=== PATIENT | male | born 1970 ===

== ENCOUNTER 2018-02-18 17:30 | Emergency (ER) | payer MEDICAID ==
[2018-02-18] MEDS ORDERED: Sodium Chloride 0.9% 1,000 ML IV ONE (18:07)
--- NOTE | 2018-02-18 18:08 | C.PDOC ---
History Of Present Illness 47 year old male presents to the ED for evaluation of abdominal pain which began yesterday. Patient also reports vomiting and diarrhea. He denies fever, chills, and has no other complaints at this time. Time Seen by Provider: 02/18/18 18:05 Chief Complaint (Nursing): Abdominal Pain History Per: Patient History/Exam Limitations: no limitations Onset/Duration Of Symptoms: Hrs Current Symptoms Are (Timing): Still Present Location Of Pain/Discomfort: Diffuse Radiation Of Pain To:: None Quality Of Discomfort: "Pain" Associated Symptoms: Vomiting, Diarrhea. denies: Fever, Chills Last Bowel Movement: Today Additional History Per: Patient Past Medical History Reviewed: Historical Data, Nursing Documentation, Vital Signs Vital Signs: Last Vital Signs Temp 98.6 F 02/18/18 22:10 Pulse 81 02/18/18 22:10 Resp 18 02/18/18 22:10 BP 121/66 02/18/18 22:10 Pulse Ox 99 02/18/18 22:10 - Medical History PMH: No Chronic Diseases Surgical History: No Surg Hx Family History: States: Unknown Family Hx - Social History Hx Alcohol Use: No Hx Substance Use: No - Immunization History Hx Tetanus Toxoid Vaccination: No Hx Influenza Vaccination: No Hx Pneumococcal Vaccination: No Review Of Systems Constitutional: Negative for: Fever, Chills Gastrointestinal: Positive for: Vomiting, Abdominal Pain, Diarrhea Physical Exam - Physical Exam Appears: Non-toxic, No Acute Distress Skin: Normal Color, Warm, Dry Head: Atraumatic, Normacephalic Eye(s): bilateral: Normal Inspection Oral Mucosa: Moist Neck: Supple Chest: Symmetrical, No Deformity, No Tenderness Cardiovascular: Rhythm Regular, No Murmur Respiratory: Normal Breath Sounds, No Rales, No Rhonchi, No Wheezing Gastrointestinal/Abdominal: Soft, Tenderness (mild, left-sided), No Guarding, No Rebound Extremity: Normal ROM, Capillary Refill (less than 2 seconds ) Neurological/Psych: Oriented x3, Normal Speech, Normal Cognition ED Course And Treatment - Laboratory Results Result Diagrams: 02/18/18 18:37 02/18/18 18:37 ECG: Interpreted By Me, Viewed By Me ECG Rhythm: Sinus Rhythm Interpretation Of ECG: Normal Sinus Rhythm at rate 73bpm. No ST/T wave changes. Rate From EC O2 Sat by Pulse Oximetry: 96 (on RA) Pulse Ox Interpretation: Normal Medical Decision Making Medical Decision Making: r/o gastiris pancreatitis colitis obstruction - labs pending Progress: Bloodwork, UA, and EKG ordered and reviewed. Protonix IVP, Zofran IVP and IV Fluids administered. ct shows sbo- pt offered admission, refuses. explained extensively risk. states will return with worsening. This patient is choosing to leave against medical advice. I have personally explained to the patient that choosing to do so may result in permanent bodily harm or . I have discussed at great length that without further evaluation and monitoring there may be unforeseen circumstances and/or deterioration causing permanent bodily harm or as a result of their choice. The patient is alert, oriented, and shows the mental capacity to make clear decisions regarding the patients health care at this time. The patient continues to wish to leave against medical advice. In light of the patients decision to leave AMA, follow-up has been arranged and the patient is aware of the importance of following up as instructed. The patient has been advised that they should return to the ED immediately if they change their mind at any time, or if their condition begins to change or worsen in any way. Disposition - Disposition Referrals: [facility] [Outside] [facility] [Outside] [facility] [Outside] Tanisha Montgomery MD [Staff Provider] - Melecio Nielson MD [Staff Provider] - Disposition: HOME/ ROUTINE Disposition Time: 00:21 Condition: UNKNOWN Additional Instructions: please follow up with your doctor. return to er with worsening symptoms or concenrs. please see specialist. Prescriptions: Ciprofloxacin [Cipro] 500 mg PO BID #14 tab Metronidazole [Flagyl] 500 mg PO TID #21 tablet Instructions: Small Bowel Obstruction, Bacterial Gastroenteritis, Child (DC), Leaving Against Medical Advice Forms: [facility] (Tajik) - Clinical Impression Clinical Impression: Bowel obstruction, Gastroenteritis - Scribe Statement The provider has reviewed the documentation as recorded by the Scribe (Nilsa Gonzalez) Provider Attestation: All medical record entries made by the Scribe were at my direction and personally dictated by me. I have reviewed the chart and agree that the record accurately reflects my personal performance of the history, physical exam, medical decision making, and the department course for this patient. I have also personally directed, reviewed, and agree with the discharge instructions and disposition.
[2018-02-18] MEDS ORDERED: Sodium Chloride 0.9% 1,000 ML ONE (18:21)
[2018-02-18 18:40] LABS: BASO # 0.1 K/uL (0.0-0.2); BASO % 0.9 % (0.0-2.0); EOS # 0.2 K/uL (0.0-0.7); EOS % 1.4 % (0.0-4.0); HEMOGLOBIN 18.2 g/dL (12.0-18.0); LYMPH # 2.2 K/uL (1.0-4.3); LYMPH % 19.7 % (20.0-40.0); MEAN CELL VOLUME 94.3 fL (80.0-94.0); MEAN CORPUSCULAR HEMOGLOBIN 32.4 pg (27.0-31.0); MEAN CORPUSCULAR HGB CONC 34.4 g/dL (33.0-37.0); MEAN PLATELET VOLUME 7.7 fL (7.2-11.7); MONO % 8.9 % (0.0-10.0); NEUT # 7.8 K/uL (1.8-7.0); NEUT % 69.1 % (50.0-75.0); NRBC % 0.1 % (0.0-2.0); RBC 5.61 Mil/uL (4.40-5.90); RED CELL DISTRIBUTION WIDTH 14.2 % (11.5-14.5); WHITE BLOOD COUNT 11.3 K/uL (4.8-10.8)
[2018-02-18 18:46] LABS: SQUAMOUS EPITHIAL 1 /hpf (0-5); URINE BILIRUBIN NEGATIVE (NEGATIVE); URINE BLOOD 2+ (NEGATIVE); URINE CLARITY Hazy (Clear); URINE COLOR Amber (YELLOW); URINE GLUCOSE (UA) NORMAL (Normal); URINE LEUKOCYTE ESTERASE NEG Leu/uL (Negative); URINE PROTEIN 2+ mg/dL (NEGATIVE)
[2018-02-18 18:50] LABS: INR 1.1; PROTHROMBIN TIME 12.2 SECONDS (9.7-12.2)
[2018-02-18 18:52] LABS: ALB/GLOB RATIO 1.1 (1.0-2.1); ALBUMIN 4.7 g/dL (3.5-5.0); ALT/SGPT 36 U/L (21-72); AST/SGOT 38 U/L (17-59); BLOOD UREA NITROGEN 16 mg/dL (9-20); CALCIUM 9.4 mg/dl (8.6-10.4); GFR AFRICAN-AMERICAN > 60; GFR NON-AFRICAN AMERICAN > 60; LIPASE 57 U/L (23-300)
[2018-02-18] MEDS ORDERED: Iohexol 300 100 ML IJ ONE (19:21)
[2018-02-18 21:10] VITALS: RESP 18
--- NOTE | 2018-02-18 21:43 | CT ---
EXAM: CT Abdomen and Pelvis With Intravenous Contrast EXAM DATE/TIME: 02/18/2018 7:12 PM CLINICAL HISTORY: 47 years old, male; Pain; Abdominal pain; Flank; Left lower quadrant (llq); Additional info: Left sided abd pain TECHNIQUE: Axial computed tomography images of the abdomen and pelvis with intravenous contrast. All CT scans at this facility use one or more dose reduction techniques, viz.: automated exposure control; ma/kV adjustment per patient size (including targeted exams where dose is matched to indication; i.e. head); or iterative reconstruction technique. Coronal and sagittal reformatted images were created and reviewed. CONTRAST: 100 mL of OMNIPAQUE 300 administered intravenously. COMPARISON: There are no prior studies for comparison. FINDINGS: Artifact: There is patient motion artifact. There is streak artifact Lower thorax: Heart size is normal. There is dependent atelectasis bilaterally. ABDOMEN: Liver: There is fatty infiltration of the liver. Gallbladder and bile ducts: unremarkable Pancreas: unremarkable Spleen: unremarkable Adrenals: unremarkable Kidneys and ureters: There is a left renal cyst.Kidneys and ureters are otherwise unremarkable. Stomach and bowel: Stomach is partially distended. There is asymmetric gastric wall thickening. There is mild prominence of the antral and duodenal viera. There is mild descending duodenal fold and wall thickening. Rotation is normal. Proximal and mid small bowel is dilated with air-fluid levels. There is wall in thickening. There is caliber change in the right mid to lower abdomen. Distal small bowel is partially distended with fluid. There is mild distal and terminal ileal wall thickening and fatty infiltration.Appendix is unremarkable. Colon is partially distended with fluid. Appendix: See stomach and bowel PELVIS: Bladder: The bladder is incompletely distended. There is mild bladder wall prominence. Reproductive: Seminal vesicles and prostate are unremarkable. ABDOMEN and PELVIS: Intraperitoneal space: There is no free air or free fluid. Bones/joints: There are degenerative changes in the osseus structures. There degenerative changes of the sacroiliac joints. Soft tissues: There is bilateral gynecomastia. Vasculature: Vascular structures are unremarkable. Lymph nodes: There is no pathologic adenopathy. IMPRESSION: Partial versus early mid small bowel obstruction most likely due to thickened abnormal ileal loops in the right lower quadrant, asymmetric gastric and small bowel wall thickening with fluid throughout the intestinal tract suggestive gastroenteritis or inflammatory bowel disease; no acute solid visceral abnormality, no renal or ureteral stones or hydronephrosis Additional nonemergent findings as described above.
[2018-02-18] MEDS ORDERED: Piperacillin/Tazobact 3.375 gm 100 ML IVPB STA (21:45)
[2018-02-18] MEDS ORDERED: Piperacillin/Tazobact 3.375 gm 100 ML IVPB ONE (22:02)
[2018-02-18 22:10] VITALS: BP 121/66; PULSE 81; TEMP 98.6
[2018-02-19 00:24] VITALS: O2SAT 96
--- NOTE | 2018-02-19 10:30 | CARD ---
APPROVED REPORT EKG Measurement Heart [id number] <Conclusion> Normal sinus rhythm,rsr in v1.
== END 2018-02-18 22:37 | disposition home or self-care (01) ==
LOC: C.ER 17:30
DX: K56.609 Unspecified intestinal obstruction, unspecified as to partial versus complete obstruction (principal); K52.9 Noninfective gastroenteritis and colitis, unspecified
CPT/HCPCS: 74177; 80053; 81001; 83690; 84484; 85025; 85610; 85730; 93005; 96361; 96365; 96375; 99285; C9113; J2405; J2543; J7040; Q9967

== ENCOUNTER 2018-10-10 14:32 | Emergency (ER) | payer MEDICAID ==
[2018-10-10 15:02] VITALS: BP 156/92; PULSE 78; RESP 20; TEMP 98.9; O2SAT 99
[2018-10-10] MEDS ORDERED: Tobramycin 0.3% OPH OINT OD STA (15:21)
[2018-10-10] MEDS ORDERED: PROPARACAINE/FLUORESCEIN SOD 100 DROP/5 ML BOTTLE OD STA (15:22)
--- NOTE | 2018-10-10 15:22 | C.PDOC ---
History Of Present Illness 48 years old male presents to ED for complaints of Right eye pain that began last night s/p getting poked by a tree branch. Patient also reports positive tearing and minimal eyelid swelling. Time Seen by Provider: 10/10/18 15:08 Chief Complaint (Nursing): Eye Problem History Per: Patient History/Exam Limitations: no limitations Onset/Duration Of Symptoms: Hrs Current Symptoms Are (Timing): Still Present Injury To Eye?: Yes Wears Contact Lens?: No Associated Symptoms: Pain, Swelling Recent travel outside of the [place]: No Past Medical History Reviewed: Historical Data, Nursing Documentation, Vital Signs Vital Signs: Last Vital Signs Temp 98.9 F 10/10/18 14:57 Pulse 78 10/10/18 14:57 Resp 20 10/10/18 14:57 BP 156/92 H 10/10/18 14:57 Pulse Ox 99 10/10/18 14:57 - Medical History PMH: No Chronic Diseases Surgical History: No Surg Hx Family History: States: Unknown Family Hx - Social History Hx Alcohol Use: No Hx Substance Use: No - Immunization History Hx Tetanus Toxoid Vaccination: No Hx Influenza Vaccination: No Hx Pneumococcal Vaccination: No Review Of Systems Constitutional: Negative for: Fever, Chills Eyes: Positive for: Pain (Right eye pain), Other (Eyelid swelling and positive tearing ) Gastrointestinal: Negative for: Nausea, Vomiting Skin: Negative for: Rash Neurological: Negative for: Weakness, Numbness Physical Exam - Physical Exam Appears: Non-toxic, No Acute Distress Skin: Warm, Dry, No Rash Head: Atraumatic, Normacephalic Eye(s): right: Other (Corneal abrasion of eye and minimal eyelid swelling without erythema.), left: Normal Inspection, PERRL, EOMI Ear(s): Bilateral: Normal Nose: Normal Oral Mucosa: Moist Neck: Normal ROM, Supple Chest: Symmetrical, No Tenderness Cardiovascular: Rhythm Regular Respiratory: Normal Breath Sounds, No Rales, No Rhonchi, No Wheezing Extremity: Normal ROM Extremity: Bilateral: Atraumatic, Normal Color And Temperature, Normal ROM Pulses: Left Radial: Normal, Right Radial: Normal Neurological/Psych: Oriented x3, Normal Speech Gait: Steady ED Course And Treatment O2 Sat by Pulse Oximetry: 99 (RA) Pulse Ox Interpretation: Normal Medical Decision Making Medical Decision Making: Left Eye: 20/20 Right eye: 20/40 Plan: * Evaluated patient with mahoney lamp. * Floresceins positive * Advised for Corneal abrasion follow up with Lizzette Gutierrez * Tobramycin Applied. Disposition Counseled Patient/Family Regarding: Studies Performed, Diagnosis, Need For Followup, Rx Given - Disposition Referrals: Dago Erickson MD [Staff Provider] - Disposition: HOME/ ROUTINE Disposition Time: 16:31 Condition: STABLE Additional Instructions: FOLLOW UP WITH DR. ERICKSON TOMORROW AM WITHOUT FAIL. IF SYMPTOMS GET WORSE OR ANY NEW CONCERNING SYMPTOMS DEVELOP RETURN TO ED. Prescriptions: Tobramycin [Tobrex] 1 oin OD BID #3.5 g Instructions: Corneal Abrasion (DC) Forms: [facility] (Korean), General Discharge Instructions - Clinical Impression Clinical Impression: Corneal abrasion - PA / CHEMICAL LAB SUPERVISOR / Resident Statement MD/DO has reviewed & agrees with the documentation as recorded. - Scribe Statement The provider has reviewed the documentation as recorded by the Scribe Suzy Sanchez All medical record entries made by the Scribe were at my direction and personally dictated by me. I have reviewed the chart and agree that the record accurately reflects my personal performance of the history, physical exam, medical decision making, and the department course for this patient. I have also personally directed, reviewed, and agree with the discharge instructions and disposition.
[2018-10-10] MEDS ORDERED: Tobramycin 0.3% OPH OINT ONE (16:42)
== END 2018-10-10 16:42 | disposition home or self-care (01) ==
LOC: C.ER 14:32
DX: S05.01XA Injury of conjunctiva and corneal abrasion without foreign body, right eye, initial encounter (principal); W22.8XXA Striking against or struck by other objects, initial encounter